=== PATIENT | female | born 1940 | race African-American/Black ===

== ENCOUNTER 2017-01-13 14:08 | Inpatient (IN) | payer OTHER, MEDICAID ==
--- NOTE | 2017-01-13 14:32 | DR.SOBA ---
HPI - Primary Care Physician Primary Care Physician: melita - Complaints Chief Complaint:: PT BROUGHT IN BY EMS STATING HOME HEALTH NURSE STATED PT WAS HAVING SOB. UPON ARRIVAL PT STATES SHE IS NOT HAVING ANY SOB, BUT SHE IS HAVING SOME UPPER LIP SWELLING WHICH PT STATES SHE IS HAVING SOME GUM ISSUES. PT ALSO STATES SHE WAS STARTED ON CLYNDAMYCIN YESTERDAY DUE TO LT LOWER EXR SWELLING - Reviewed Nurses Notes Reviewed: Yes - Source History Provided: Patient - Mode of Arrival Mode of Arrival: EMS - Timing Onset of Chief Complaint: 01/13/17 PMH - PMH Past Medical History: Yes Past Medical History: Arthritis, CHF, Diabetes, Hypertension Past Surgical History: Yes Surgical History: Unknown - Family History History of Family Medical Conditions: No - Social History Does any household member use tobacco: No Alcohol Use: None Do you use any recreational Drugs:: No Lives With: Family Lives Where: Home - infectious screening In the last 2 months have you had wt loss of >10#?: NO Have you had fever, night sweats or hemotysis?: No Have you traveled outside the country in the last 6 months?: No Isolation: Standard PE - Vital Signs Vitals: Temperature 98.5 F Pulse Rate 72 Respiratory Rate 18 Blood Pressure 138/71 O2 Sat by Pulse Oximetry 99 Course - Treatment Treatment: IV ANTIBIOTIC IN ED. - Consultation Consultation Comments: DISCUSS PATIENT WITH DR. RHOADES. HE WILL ADMIT PATIENT. - Education/Counseling Education/Counseling: Patient, Education Educated On: Treatment, Diagnosis ROR - Labs Reviewed Laboratory Results Reviewed?: Yes Result Diagrams: 01/13/17 15:05 01/13/17 15:05 Laboratory: WBC 7.6 X10^3/uL (3.6-10.0) 01/13/17 15:05 RBC 3.21 X10^6/uL (3.5-5.4) L 01/13/17 15:05 Hgb 10.0 g/dL (12.0-16.0) L 01/13/17 15:05 Hct 29.7 % (36.0-47.0) L 01/13/17 15:05 MCV 92.7 fL (80.0-100.0) 01/13/17 15:05 MCH 31.1 pg (27.0-34.0) 01/13/17 15:05 MCHC 33.6 g/dL (33.0-35.0) 01/13/17 15:05 RDW 13.9 % (11.6-16.5) 01/13/17 15:05 Plt Count 190 X10^3/uL (150.0-450.0) 01/13/17 15:05 MPV 8.8 fL (7.4-11.0) 01/13/17 15:05 Neut % 63.9 % (42.0-75.0) 01/13/17 15:05 Lymph % 22.7 % (21.0-51.0) 01/13/17 15:05 [place] % 9.7 % (0.0-13.0) 01/13/17 15:05 Eos % 2.6 % (0.9-2.9) 01/13/17 15:05 Baso % 1.1 % (0.2-1.0) H 01/13/17 15:05 Neut # 4.9 x10^3/uL (2.2-4.8) H 01/13/17 15:05 Lymph # 1.7 X10^3/uL (1.3-2.9) 01/13/17 15:05 [place] # 0.7 x10^3/uL (0.3-0.8) 01/13/17 15:05 Eos # 0.2 x10^3/uL (0.0-0.2) 01/13/17 15:05 Baso # 0.1 X10^3/uL (0.0-0.1) 01/13/17 15:05 Absolute Nucleated RBC 0.0 /100WBC 01/13/17 15:05 Sodium 139 mmol/L (136-145) 01/13/17 15:05 Corrected Sodium TNP 01/13/17 15:05 Potassium 4.2 mmol/L (3.5-5.1) 01/13/17 15:05 Chloride 102 mmol/L (98-107) 01/13/17 15:05 Carbon Dioxide 27.7 mmol/L (21-32) 01/13/17 15:05 BUN 23 mg/dL (7-18) H 01/13/17 15:05 Creatinine 1.86 mg/dL (0.55-1.02) H 01/13/17 15:05 Est GFR (MDRD) Af Amer 34 (>60) L 01/13/17 15:05 Est GFR (MDRD) Non-Af 28 (>60) L 01/13/17 15:05 Glucose 98 mg/dL (65-99) 01/13/17 15:05 Calcium 8.6 mg/dL (8.5-10.1) 01/13/17 15:05 Corrected Calcium 9.3 mg/dL (8.5-10.1) 01/13/17 15:05 Total Bilirubin 0.40 mg/dL (0.2-1.0) 01/13/17 15:05 AST 14 Units/L (15-37) L 01/13/17 15:05 ALT 13 Units/L (12-78) 01/13/17 15:05 Alkaline Phosphatase 72 Units/L (46-116) 01/13/17 15:05 Creatine Kinase 138 Units/L (26-192) 01/13/17 15:05 CK-MB (CK-2) 1.6 ng/mL (0-4.0) 01/13/17 15:05 CK/CKMB % Calc 1.2 % (<4) 01/13/17 15:05 Troponin I 0.03 ng/mL (0-1.5) 01/13/17 15:05 B-Natriuretic Peptide 108 pg/mL (0-79) H 01/13/17 15:05 Total Protein 7.9 g/dL (6.4-8.2) 01/13/17 15:05 Albumin 3.1 g/dL (3.4-5.0) L 01/13/17 15:05 Globulin 4.8 g/dL (2.5-4.5) H 01/13/17 15:05 Albumin/Globulin Ratio 0.6 Ratio (1.1-2.1) L 01/13/17 15:05 Specimen Type Clean catch urine 01/13/17 16:44 Urine Color Yellow (YELLOW) 01/13/17 16:44 Urine Appearance Cloudy (CLEAR) 01/13/17 16:44 Urine pH 5.0 (5.0 - 8.0) 01/13/17 16:44 Ur Specific [place] 1.010 (1.000-1.030) 01/13/17 16:44 Urine Protein 2+ (NEGATIVE) 01/13/17 16:44 Urine Glucose (UA) Negative (NEGATIVE) 01/13/17 16:44 Urine Ketones Negative (NEGATIVE) 01/13/17 16:44 Urine Occult Blood 2+ (NEGATIVE) 01/13/17 16:44 Urine Nitrite Negative (NEGATIVE) 01/13/17 16:44 Urine Bilirubin Negative (NEGATIVE) 01/13/17 16:44 Urine Urobilinogen Normal (NORMAL) 01/13/17 16:44 Ur Leukocyte Esterase 3+ (NEGATIVE) 01/13/17 16:44 Urine RBC 0 - 3 /HPF (NEGATIVE) 01/13/17 16:44 Urine WBC Tntc with clumps /HPF (NEGATIVE) 01/13/17 16:44 Ur Squamous Epith Cells Numerous /HPF (NEGATIVE) 01/13/17 16:44 Amorphous Sediment 2+ /HPF (NEGATIVE) 01/13/17 16:44 Urine Bacteria 1+ /HPF (NEGATIVE) 01/13/17 16:44 Hyaline Casts Rare /LPF (NEGATIVE) 01/13/17 16:44 Urine Mucus Moderate /HPF (NEGATIVE) 01/13/17 16:44 Ur Culture Indicated? Yes/culture set up 01/13/17 16:44 - XRAY XRAY Interpreted by: Radiologist XRAY Findings: REPORT DISCUSS WITH PATIENT. - EKG Rhythm: NSR (EKG NOTED.) - Diagnosis Discharge Problem: Cellulitis of left lower extremity UTI (urinary tract infection) Qualifiers: Urinary tract infection type: site unspecified Hematuria presence: without hematuria Qualified Code(s): N39.0 - Urinary tract infection, site not specified Angioedema Qualifiers: Encounter type: initial encounter Qualified Code(s): T78.3XXA - Angioneurotic edema, initial encounter Allergic reaction Qualifiers: Encounter type: initial encounter Qualified Code(s): T78.40XA - Allergy, unspecified, initial encounter - Discharge Plan Disposition: 09 ADMITTED INPATIENT Condition: Stable - Follow ups/Referrals - Instructions
[2017-01-13] MEDS ORDERED: BENADRYL INJ 50 MG VIAL IVP ONE (14:33)
[2017-01-13] MEDS ORDERED: SOLU-Medrol 125 MG VIAL IVP ONE (14:33)
[2017-01-13] MEDS ORDERED: BENADRYL INJ 50 MG VIAL ONE (14:40)
[2017-01-13] MEDS ORDERED: SOLU-Medrol 125 MG VIAL ONE (14:40)
--- NOTE | 2017-01-13 15:08 | RAD ---
Chest, one view Indication: Shortness of breath. Comparison: June 30, 2015 Findings: The patient is rotated towards the left. Given these limitations, mild cardiomegaly appear s stable. The lungs appear clear without focal consolidation, edema or significant effusion. No pneu mothorax is identified. Impression: No acute cardiopulmonary abnormality. Reported By:
[2017-01-13 15:29] LABS: BASOPHILS # (AUTO) 0.1 X10^3/uL (0.0-0.1); BASOPHILS % (AUTO) 1.1 % (0.2-1.0); EOSINOPHILS # (AUTO) 0.2 x10^3/uL (0.0-0.2); EOSINOPHILS % (AUTO) 2.6 % (0.9-2.9); HEMATOCRIT 29.7 % (36.0-47.0); LYMPHOCYTES # (AUTO) 1.7 X10^3/uL (1.3-2.9); LYMPHOCYTES % (AUTO) 22.7 % (21.0-51.0); MEAN CORPUSCULAR HEMOGLOBIN 31.1 pg (27.0-34.0); MEAN CORPUSCULAR HGB CONC 33.6 g/dL (33.0-35.0); MEAN CORPUSCULAR VOLUME 92.7 fL (80.0-100.0); MEAN PLATELET VOLUME 8.8 fL (7.4-11.0); MONOCYTES # (AUTO) 0.7 x10^3/uL (0.3-0.8); MONOCYTES % (AUTO) 9.7 % (0.0-13.0); NEUTROPHILS # (AUTO) 4.9 x10^3/uL (2.2-4.8); NEUTROPHILS % (AUTO) 63.9 % (42.0-75.0); PLATELET COUNT 190 X10^3/uL (150.0-450.0); RED BLOOD COUNT 3.21 X10^6/uL (3.5-5.4); RED CELL DISTRIBUTION WIDTH 13.9 % (11.6-16.5); WHITE BLOOD COUNT 7.6 X10^3/uL (3.6-10.0)
[2017-01-13 15:49] LABS: B-TYPE NATRIURETIC PEPTIDE 108 pg/mL (0-79)
[2017-01-13 16:55] LABS: BLOOD UREA NITROGEN 23 mg/dL (7-18); CALCIUM 8.6 mg/dL (8.5-10.1); CARBON DIOXIDE 27.7 mmol/L (21-32); CHLORIDE 102 mmol/L (98-107); CREATININE 1.86 mg/dL (0.55-1.02); GLUCOSE 98 mg/dL (65-99); SODIUM 139 mmol/L (136-145); TROPONIN I 0.03 ng/mL (0-1.5); eGFR BLACK RACES 34 (>60); eGFR NON BLACK RACES 28 (>60)
[2017-01-13 16:59] LABS: ALANINE AMINOTRANSFERASE 13 Units/L (12-78); ALBUMIN 3.1 g/dL (3.4-5.0); ALKALINE PHOSPHATASE 72 Units/L (46-116); ASPARTATE AMINO TRANSFERASE 14 Units/L (15-37); CKMB % 1.2 % (<4); COR CA(FOR HYPOALB) 9.3 mg/dL (8.5-10.1); CREATINE KINASE 138 Units/L (26-192); CREATINE KINASE MB 1.6 ng/mL (0-4.0); TOTAL PROTEIN 7.9 g/dL (6.4-8.2)
[2017-01-13 17:26] LABS: BILIRUBIN,URINE NEGATIVE (NEGATIVE); BLOOD/HEMOGLOBIN,URINE 2+ (NEGATIVE); GLUCOSE, URINE NEGATIVE (NEGATIVE); KETONES,URINE NEGATIVE (NEGATIVE); LEUKOCYTE ESTERASE ,URINE 3+ (NEGATIVE); NITRITES,URINE NEGATIVE (NEGATIVE); PROTEIN,URINE 2+ (NEGATIVE); UROBILINOGEN,URINE NORMAL (NORMAL)
[2017-01-13 17:34] LABS: APPEARANCE,URINE CLOUDY (CLEAR); COLOR,URINE YELLOW (YELLOW)
[2017-01-13 17:40] LABS: BACTERIA,URINE 1+ /HPF (NEGATIVE); RBC,URINE 0 - 3 /HPF (NEGATIVE); SQUAMOUS EPITHELIAL CELL,UR NUMEROUS /HPF (NEGATIVE)
[2017-01-13 17:41] LABS: AMORPHOUS SEDIMENT,UR 2+ /HPF (NEGATIVE); HYALINE CASTS, URINE RARE /LPF (NEGATIVE); MUCUS,URINE MODERATE /HPF (NEGATIVE)
[2017-01-13] MEDS ORDERED: TEFLARO IV ONE (18:29)
[2017-01-13] MEDS ORDERED: NS 50 ML IV 50 ML IV ONE (18:30)
[2017-01-13] MEDS: TEFLARO 400 MG in NS 50 ML IV 50 ML IV SCH ×2 (18:44→22:26)
[2017-01-13 21:41] LABS: CKMB % 1.3 % (<4); CREATINE KINASE MB 1.6 ng/mL (0-4.0); TROPONIN I 0.03 ng/mL (0-1.5)
[2017-01-13] MEDS: NS 1000 ML 1,000 ML IV SCH (22:30)
[2017-01-14 06:11] LABS: BASOPHILS % (AUTO) 0.1 % (0.2-1.0); HEMATOCRIT 27.8 % (36.0-47.0); HEMOGLOBIN 9.3 g/dL (12.0-16.0); LYMPHOCYTES # (AUTO) 0.5 X10^3/uL (1.3-2.9); LYMPHOCYTES % (AUTO) 7.1 % (21.0-51.0); MEAN CORPUSCULAR HEMOGLOBIN 31.2 pg (27.0-34.0); MEAN CORPUSCULAR HGB CONC 33.4 g/dL (33.0-35.0); MEAN CORPUSCULAR VOLUME 93.5 fL (80.0-100.0); MEAN PLATELET VOLUME 9.3 fL (7.4-11.0); MONOCYTES # (AUTO) 0.1 x10^3/uL (0.3-0.8); MONOCYTES % (AUTO) 1.9 % (0.0-13.0); NEUTROPHILS # (AUTO) 6.7 x10^3/uL (2.2-4.8); NEUTROPHILS % (AUTO) 90.9 % (42.0-75.0); PLATELET COUNT 196 X10^3/uL (150.0-450.0); RED BLOOD COUNT 2.98 X10^6/uL (3.5-5.4); RED CELL DISTRIBUTION WIDTH 13.8 % (11.6-16.5); WHITE BLOOD COUNT 7.3 X10^3/uL (3.6-10.0)
[2017-01-14 06:27] LABS: ALBUMIN 2.5 g/dL (3.4-5.0); CALCIUM 8.3 mg/dL (8.5-10.1); CARBON DIOXIDE 26.5 mmol/L (21-32); CKMB % 1.1 % (<4); COR CA(FOR HYPOALB) 9.5 mg/dL (8.5-10.1); CREATINE KINASE MB 1.2 ng/mL (0-4.0); CREATININE 1.56 mg/dL (0.55-1.02); TOTAL PROTEIN 7.2 g/dL (6.4-8.2); TROPONIN I 0.02 ng/mL (0-1.5)
[2017-01-14 08:34] LABS: BAND NEUTROPHILS % 5 % (0-10); PLATELET MORPHOLOGY COMMENT NORMAL (NORMAL)
[2017-01-14] MEDS ORDERED: NS 50 ML IV + SPIKE MINIBAG* 50 ML IV ONE (08:59)
[2017-01-14] MEDS: TEFLARO 400 MG in NS 50 ML IV 50 ML IV SCH (09:20)
[2017-01-14] MEDS: ZYLOPRIM PO SCH (10:48)
[2017-01-14] MEDS: DITROPAN TAB 5 MG PO SCH ×2 (10:48→21:26)
[2017-01-14] MEDS: TEFLARO 600 MG in NS 50 ML IV 50 ML IV SCH ×2 (10:48→21:26)
[2017-01-14] MEDS: TOPROL XL PO SCH (10:48)
[2017-01-14] MEDS: NS 1000 ML 1,000 ML IV SCH (11:18)
[2017-01-14] MEDS ORDERED: NORCO 5/325 MG TAB PO PRN (13:15)
[2017-01-14] MEDS ORDERED: DITROPAN TAB 5 MG PO SCH (14:00)
[2017-01-14] MEDS ORDERED: TOPROL XL PO SCH (14:00)
[2017-01-14] MEDS ORDERED: ZYLOPRIM PO SCH (14:00)
[2017-01-14] MEDS: BACTROBAN OINT EXT SCH ×2 (15:43→21:45)
[2017-01-14] MEDS ORDERED: HumuLIN R SC PRN (18:40)
[2017-01-15] MEDS: BACTROBAN OINT EXT SCH ×3 (05:38→21:04)
[2017-01-15 06:37] LABS: ALBUMIN 2.5 g/dL (3.4-5.0); CARBON DIOXIDE 24.5 mmol/L (21-32); COR CA(FOR HYPOALB) 9.2 mg/dL (8.5-10.1); CREATININE 1.43 mg/dL (0.55-1.02); TOTAL PROTEIN 6.7 g/dL (6.4-8.2)
[2017-01-15 07:08] LABS: BASOPHILS # (AUTO) 0.1 X10^3/uL (0.0-0.1); BASOPHILS % (AUTO) 0.9 % (0.2-1.0); EOSINOPHILS # (AUTO) 0.3 x10^3/uL (0.0-0.2); EOSINOPHILS % (AUTO) 2.9 % (0.9-2.9); HEMATOCRIT 28.7 % (36.0-47.0); HEMOGLOBIN 9.5 g/dL (12.0-16.0); LYMPHOCYTES # (AUTO) 2.2 X10^3/uL (1.3-2.9); LYMPHOCYTES % (AUTO) 22.2 % (21.0-51.0); MEAN CORPUSCULAR HEMOGLOBIN 31.1 pg (27.0-34.0); MEAN CORPUSCULAR HGB CONC 33.1 g/dL (33.0-35.0); MEAN CORPUSCULAR VOLUME 94.2 fL (80.0-100.0); MEAN PLATELET VOLUME 8.7 fL (7.4-11.0); MONOCYTES # (AUTO) 0.8 x10^3/uL (0.3-0.8); MONOCYTES % (AUTO) 7.9 % (0.0-13.0); NEUTROPHILS # (AUTO) 6.6 x10^3/uL (2.2-4.8); NEUTROPHILS % (AUTO) 66.1 % (42.0-75.0); PLATELET COUNT 208 X10^3/uL (150.0-450.0); RED BLOOD COUNT 3.04 X10^6/uL (3.5-5.4); RED CELL DISTRIBUTION WIDTH 13.7 % (11.6-16.5); WHITE BLOOD COUNT 9.9 X10^3/uL (3.6-10.0)
[2017-01-15] MEDS: DITROPAN TAB 5 MG PO SCH ×2 (09:11→20:58)
[2017-01-15] MEDS: TOPROL XL PO SCH (09:11)
[2017-01-15] MEDS: ZYLOPRIM PO SCH (09:11)
[2017-01-15] MEDS: TEFLARO 600 MG in NS 50 ML IV 50 ML IV SCH ×2 (09:12→20:59)
[2017-01-15] MEDS: NORCO 5/325 MG TAB PO PRN ×2 (09:12→21:01)
[2017-01-15] MEDS: NS 1000 ML 1,000 ML IV SCH ×2 (09:15→09:52)
[2017-01-15 09:28] VITALS: BMI 43.4
[2017-01-15] MEDS ORDERED: SNACK - Diabetic Appropriate PO SCH (20:00)
[2017-01-16 05:08] LABS: BASOPHILS % (AUTO) 0.5 % (0.2-1.0); EOSINOPHILS # (AUTO) 0.4 x10^3/uL (0.0-0.2); EOSINOPHILS % (AUTO) 6.5 % (0.9-2.9); HEMATOCRIT 28.5 % (36.0-47.0); HEMOGLOBIN 9.5 g/dL (12.0-16.0); LYMPHOCYTES # (AUTO) 1.8 X10^3/uL (1.3-2.9); LYMPHOCYTES % (AUTO) 27.6 % (21.0-51.0); MEAN CORPUSCULAR HEMOGLOBIN 31.1 pg (27.0-34.0); MEAN CORPUSCULAR HGB CONC 33.2 g/dL (33.0-35.0); MEAN CORPUSCULAR VOLUME 93.7 fL (80.0-100.0); MEAN PLATELET VOLUME 9.1 fL (7.4-11.0); MONOCYTES # (AUTO) 0.5 x10^3/uL (0.3-0.8); MONOCYTES % (AUTO) 7.9 % (0.0-13.0); NEUTROPHILS # (AUTO) 3.7 x10^3/uL (2.2-4.8); NEUTROPHILS % (AUTO) 57.5 % (42.0-75.0); PLATELET COUNT 196 X10^3/uL (150.0-450.0); RED BLOOD COUNT 3.04 X10^6/uL (3.5-5.4); RED CELL DISTRIBUTION WIDTH 13.6 % (11.6-16.5); WHITE BLOOD COUNT 6.5 X10^3/uL (3.6-10.0)
[2017-01-16 05:23] LABS: ALANINE AMINOTRANSFERASE 12 Units/L (12-78); ALBUMIN 2.4 g/dL (3.4-5.0); ALKALINE PHOSPHATASE 58 Units/L (46-116); ASPARTATE AMINO TRANSFERASE 20 Units/L (15-37); BLOOD UREA NITROGEN 21 mg/dL (7-18); CALCIUM 8.1 mg/dL (8.5-10.1); CARBON DIOXIDE 26.8 mmol/L (21-32); CHLORIDE 109 mmol/L (98-107); COR CA(FOR HYPOALB) 9.4 mg/dL (8.5-10.1); CREATININE 1.25 mg/dL (0.55-1.02); GLUCOSE 87 mg/dL (65-99); SODIUM 142 mmol/L (136-145); TOTAL PROTEIN 6.9 g/dL (6.4-8.2); eGFR BLACK RACES 53 (>60); eGFR NON BLACK RACES 44 (>60)
[2017-01-16] MEDS: BACTROBAN OINT EXT SCH ×2 (05:26→14:12)
[2017-01-16] MEDS: NS 1000 ML 1,000 ML IV SCH ×2 (05:31→07:29)
[2017-01-16] MEDS ORDERED: NS 50 ML IV + SPIKE MINIBAG* 50 ML IV ONE (07:49)
[2017-01-16] MEDS: ZYLOPRIM PO SCH (08:48)
[2017-01-16] MEDS: TOPROL XL PO SCH (08:48)
[2017-01-16] MEDS: TEFLARO 600 MG in NS 50 ML IV 50 ML IV SCH (08:50)
[2017-01-16] MEDS: DITROPAN TAB 5 MG PO SCH (08:50)
[2017-01-16 15:43] VITALS: BP 140/63
--- NOTE | 2017-01-18 13:35 | DR.H&P ---
H&P - History & Physical for Day of: H&P Date: 01/15/17 - Chief Complaint Chief Complaint: Facial/lip swelling - Allergies Allergies/Adverse Reactions: Allergies Allergy/AdvReac Type Severity Reaction Status Date / Time clindamycin Allergy Verified 01/13/17 21:02 - History of Present Illness History of Present Illness: The patient is a 76-year-old black female who presented to the [facility] emergency room complaining of swelling involving the lips and perioral region for the last 24 hours. Patient was on oral antibiotics for the treatment of distal left lower extremity cellulitis involving the anterior aspect. Patient was thought to have a possible allergic reaction/angioedema possibly due to the oral antibiotics. Patient was also noted to have a UTI. Patient was subsequently admitted for outpatient antibiotic treatment failure and for further workup. - Past Medical History Past Medical History: Arthritis, CHF, Diabetes, Hypertension - Past Surgical History Surgical History: Unknown - Family History Family Medical History: Diabetes Mellitus, Heart Failure - Social History Does patient currently use any type of tobacco product: No Have you used tobacco products in the last 12 months: No Type of Tobacco Use: None Does any household member use tobacco: No Alcohol Use: None Drug Use: None - Medications Home Medications: Allopurinol [ZYLOPRIM tab 100 mg *] 100 mg PO DAILY 01/13/17 [History Confirmed 01/13/17] Clindamycin HCl 300 mg PO Q8H 01/13/17 [History Confirmed 01/13/17] Furosemide [Furosemide] 1 tab PO DAILY 01/13/17 [History Confirmed 01/13/17] Hydrocodone-Acet 5 mg/325 mg [[place] 5/325 mg Tab] 1 tab PO Q8H PRN 01/13/17 [ History Confirmed 01/13/17] Metoprolol Succinate Ext Rel [Toprol Xl] 25 mg PO DAILY 01/13/17 [History Confirmed 01/13/17] Mupirocin Oint [BACTROBAN OINT 2%] 1 applic EXT TID 01/13/17 [History Confirmed 01/13/17] - Review of Systems Constitutional: No Symptoms Reported Eyes: No Symptoms Reported ENT: See HPI Respiratory: No Symptoms Reported Cardiovascular: No Symptoms Reported Gastrointestinal: No Symptoms Reported Genitourinary: No Symptoms Reported Musculoskeletal: No Symptoms Reported Skin: See HPI Neurological: No Symptoms Reported - Physical Exam Vital Signs: Temperature 98.3 F Pulse Rate [Right Brachial] 56 Pulse Rate [Left Brachial] 58 Respiratory Rate 20 Blood Pressure [Right Arm] 140/63 Blood Pressure [Left Arm] 124/59 O2 Sat by Pulse Oximetry 95 Oriented: Normal Eyes: Normal Ear: Normal Nose: Normal Throat: Normal Respiratory: Clear Throughout Cardiovascular: Normal : Normal Auscultation: Bowel Sounds: Normal Palpation: Normal Tenderness: Normal Skin: Red (anterior aspect of distal left lower ext), Tender, Hot Musculoskeletal: Normal Psychiatric: Normal Mood Description: Calm Affect: Angry Speech Pattern: Clear - Assessment/Plan (1) Cellulitis of left lower extremity Status: Acute Plan: 1. Admit for further w/u. 2. Teflaro 400mg IV q 12 hours. 3. CMP/CBC. 4. UA C&S (2) UTI (urinary tract infection) Qualifiers: Urinary tract infection type: site unspecified Hematuria presence: without hematuria Indwelling urinary catheter type: I Encounter type: E Qualified Code(s): N39.0 - Urinary tract infection, site not specified Status: Acute Plan: As above (3) Angioedema Qualifiers: Encounter type: initial encounter Qualified Code(s): T78.3XXA - Angioneurotic edema, initial encounter Status: Acute Plan: Hold current po antibx (4) Allergic reaction Qualifiers: Encounter type: initial encounter Qualified Code(s): T78.40XA - Allergy, unspecified, initial encounter Status: Acute Plan: Hold current po antibx
== END 2017-01-16 18:10 | disposition home or self-care (01) | DRG 603 ==
LOC: ER 14:08 → MED/SURG 19:09
PROVIDERS: ADMIT Internal Medicine; ATTEND Internal Medicine
DX: L03.116 Cellulitis of left lower limb (principal); N39.0 Urinary tract infection, site not specified; B96.20 Unspecified Escherichia coli [E. coli] as the cause of diseases classified elsewhere; T36.95XA Adverse effect of unspecified systemic antibiotic, initial encounter; Y92.9 Unspecified place or not applicable; R06.02 Shortness of breath; I10 Essential (primary) hypertension; T78.3XXA Angioneurotic edema, initial encounter
CPT/HCPCS: 36415; 71010; 80053; 81001; 82550; 82553; 83735; 83880; 84484; 85025; 85610; 85730; 87040; 87086; 87088; 87186; 93005; 93010; 94760; 96365; 96374; 96375; 99284; A4222; J0712; J1200; J2930